=== PATIENT | female | born 1935 | race Caucasian/White ===

== ENCOUNTER → 2024-02-24 15:14 | Outpatient (REF) | payer OTHER, SELFPAY | LOC: DHCBS HW 15:14 | PROVIDERS: ATTENDING PHYSICIAN Internal Medicine Cardiovascular Disease; FAMILY PHYSICIAN Internal Medicine | DX: Z95.2 Presence of prosthetic heart valve (principal) | CPT/HCPCS: 93306 ==

== ENCOUNTER → 2025-04-21 15:59 | Outpatient (REF) | payer OTHER, SELFPAY | LOC: HWRCS 15:59 | PROVIDERS: ATTENDING PHYSICIAN Internal Medicine Cardiovascular Disease; FAMILY PHYSICIAN Internal Medicine | DX: Z95.2 Presence of prosthetic heart valve (principal); I10 Essential (primary) hypertension; I35.0 Nonrheumatic aortic (valve) stenosis; R06.02 Shortness of breath | CPT/HCPCS: 93306 ==